=== PATIENT | female | born 1955 | race Caucasian/White ===

== ENCOUNTER → 2017-01-25 | Outpatient (CLI) | payer BC ==
[~2017-01-25] MED LIST: REGADENOSON 0.4 MG/5 ML DISP.SYRIN. IV ONE
== END | disposition home or self-care (01) ==
LOC: PCVCIMAG 07:43
PROVIDERS: ATTEND Internal Medicine Cardiovascular Disease
DX: I10 Essential (primary) hypertension (principal); R06.00 Dyspnea, unspecified; E78.00 Pure hypercholesterolemia, unspecified; R00.2 Palpitations; R53.83 Other fatigue
CPT/HCPCS: 78452; 93017; 93306; A9500; J2785

== ENCOUNTER → 2017-10-06 | Day surgery (SDC) | payer BC ==
[~2017-10-06] MED LIST changes: +BUPIVACAINE 0.5% 50 ML VIAL.; +CLINDAMYCIN 900MG PREMIX 50 ML IV; +DEXAMETHASONE SOD PHOS 20 MG/5 ML VIAL.; +HYDROmorphone 2 MG/ML VIAL IV; +LABETALOL 20 MG/4 ML DISP.SYRIN.; +LIDOCAINE 1% 20 ML VIAL.; +LIDOCAINE 1% PF 2 ML VIAL. ID; +LIDOCAINE 2% PF Vial for OR 5 ML VIAL.; +MORPHINE SULFATE 2 MG/ML DISP.SYRIN. IV; +ONDANSETRON PF 4 MG/2 ML VIAL.; +ONDANSETRON PF 4 MG/2 ML VIAL. IV; +PROCHLORPERAZINE 10 MG/2 ML VIAL. IV; +PROPOFOL 0 ML IV; +PROPOFOL 20 ML IV; +PROPOFOL 50 ML IV; -REGADENOSON 0.4 MG/5 ML DISP.SYRIN. IV ONE; +SCOPOLAMINE 1.5MG PATCH. TD; +fentaNYL PF VIAL 100 MCG/2 ML VIAL IV
[2017-10-06] MEDS: IV RINGERS,LACTATED 1000ML 1,000 ML IV (07:00)
[2017-10-06] MEDS: SCOPOLAMINE 1.5MG PATCH. TD (13:44)
== END | disposition home or self-care (01) ==
LOC: SURG 11:23
DX: M20.21 Hallux rigidus, right foot (principal); Z53.8 Procedure and treatment not carried out for other reasons; I10 Essential (primary) hypertension; K21.9 Gastro-esophageal reflux disease without esophagitis; D64.9 Anemia, unspecified; Z88.6 Allergy status to analgesic agent; Z98.890 Other specified postprocedural states; Z86.69 Personal history of other diseases of the nervous system and sense organs; Z90.710 Acquired absence of both cervix and uterus; Z87.442 Personal history of urinary calculi; Z96.653 Presence of artificial knee joint, bilateral; Z87.39 Personal history of other diseases of the musculoskeletal system and connective tissue; Z72.89 Other problems related to lifestyle; Z88.0 Allergy status to penicillin
CPT/HCPCS: J1100; J2405; J2704; J3490